=== PATIENT | male | born 1970 | race Caucasian/White ===

== ENCOUNTER 2023-02-25 15:30 | Outpatient (RCR) | payer OTHER, SELFPAY ==
--- NOTE | 2023-01-28 18:12 | OT.OPOE ---
OT Outpatient Ortho Eval OT Outpatient Ortho Eval Start: 01/28/23 17:33 Freq: Status: Active Protocol: Document 01/28/23 17:33 LCN (Rec: 01/28/23 18:00 LCN Desktop) E-signed By Hilaria Huston, OTR/L, CLT OT OP Ortho Eval Details Type Type Eval Complexity Low Insurance Information Insurance Information Workman's Comp Outpatient History/Precautions Current Condition/Medical Diagnosis Referring Provider Marvin Elam MD Treatment Diagnosis R UCL Sprain of R elbow Date of Onset 12/12/22 Precautions Lifting Restrictions Other Precautions 10# Other Conditions No medications, very healthy. No prior need for PT/OT/rehab, no prior fractures or MVA. Medical/Functional History Medical History Reviewed Yes: briefly and with patient' s recall Prior Level of Function/Mobility Pt is highly independent, does well with physically demanding job. lives with his LT girl friend and her teenaged daughter, no animals. 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 [employer] Critical Job Demands Pull,Lift,Overhead Reach Other Critical Job Demands Carrying large windows, doors between stock floor, pallets and loading Hobbies Fishing, boating, owens time and soft ball tournaments Fitness no regular regimen Oriented Mental Status No Concerns Ortho Subjective Subjective Subjective Tushar Ornelas is an active 52y/ who fell forward missing the last step going down with large window in his hands at work on 12/12/22 and was casted initially for medial epicondyle fracture, cast removed 12/27/22, still on 10# weight restriction and referred to OT to manage the stiffness, ROM loss and safe gradual progressive resistance . Pt lacking 15 degrees R MARIA FERNANDA and 7 degrees of TEF, feels pressure when washing his hair , behind behind him and when trying to use extended reach, rotate doorknobs. Minimal pain, more pressure 2/10 of edema in medial elbow, at posterior aspect of olecranon. Needs to be able to extend elbow to reach around wide window frame loads while moving again. Pain Assessment Pain Present Pain Present Pain Reported Location R posterior/medial Description Pressure,Pulling,With Movement ,Heaviness Intensity 2 Goniometric Comments Goniometric Comments Goniometric Comments AROM-- ALl shoulder planes WNL , no pain. TEF is limited to 140 of 147, with springy end feel 3/10 tender w over pressure. MARIA FERNANDA to lacking 15, 3/0 pn with over pressure, springy end feel. Supination to 80 of 90 springy end feel. MMT for wrist and elbow planes held today. RF/SF adduction is 4-/5 R and 5/5 L. Deputy Chief Magistrate pos 1 is 70# R, no pain and 81# L. Castro pinch is 22#R and 23# L. 3 pt is 18.5 R and 20# L. 3 pt / ulnar digit pinch is 12.5 R and 17.5, no pain, just less power OT Objective Data Hand Hand Dominance Right OT Problems Problems Problems Decreased Strength,Decreased Range of Motion,Sensory Sensitivity,Lifting,Gripping Patient Potential Excellent Assessment Assessment Assessment Given Tushar's R ulnar collateral ligament sprain and prior casting, he is havin difficulty with edema, stiffness, ROM and strength loss of R elbow and he would benefit from skilled OT to address these areas. Occupational Therapy Treatment Plan - OP Potential Rehabilitation Potential Excellent Goals Goals In 8 weeks, Tushar will demonstrate: 1) Decreased R elbow pn to <1 /10 80% of the time with sustained gripping, carrying 25-50# loads w EL extended waist overhead. 2) I HEP for stretching, gradual strengthening and self mgmt strategies. 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 4) improved MARIA FERNANDA to 180 and TEF to 147, no pain at end ROM, allowing for managing manual lifting of large building materials. Target Date 03/29/23 Progress set Treatment Plan Treatment Plan Evaluation,Edema Control,Joint Mobilization,Manual Therapy, Ultrasound Expected Frequency 1-2x Week Expected Duration 6-8 Weeks Certification Certification I Certify That: Therapy Services Provided, Therapy Plan Established, Therapy Plan Reviewed
== END 2023-05-23 08:11 | disposition home or self-care (01) ==
PROVIDERS: Visit Provider Orthopaedic Surgery Sports Medicine
DX: S42.441A Displaced fracture (avulsion) of medial epicondyle of right humerus, initial encounter for closed fracture (principal); S53.441A Ulnar collateral ligament sprain of right elbow, initial encounter; Z51.89 Encounter for other specified aftercare
CPT/HCPCS: 97035; 97110; 97140; 97165; X5282